=== PATIENT | female | born 1980 | race Caucasian/White ===

== ENCOUNTER 2017-06-15 18:38 | Emergency (ER) | payer BC ==
[~2017-06-15 18:38] MED LIST: ISOVUE-370 76%-LOCM 1 ML ONE
[2017-06-15 21:28] LABS: #Basophils 0.1 thou/uL (0.0-0.2); #Eosinphils 0.2 thou/uL (0.0-0.7); #Monocytes 0.7 thou/uL (0.11-0.59); #Neutrophils 6.1 thou/uL (1.40-6.50); %Eosinophils 2.4 % (0.0-10.0); %Lymphocytes 29.6 % (21.0-51.0); Hematocrit 47.9 % (36.0-47.0); Mean Platelet Volume 5.5 fL (7.4-10.4); Red Blood Cell (RBC) Count 4.76 mill/uL (4.20-5.40); White Blood Cell (WBC) Count 10.1 thou/uL (4.8-10.8)
[2017-06-15 21:49] LABS: ALT (SGPT) 29 U/L (8-55); AST (SGOT) 26 U/L (5-34); Alkaline Phosphatase 75 U/L (40-150); Anion Gap 15 mmol/L (10-20); BUN (Urea Nitrogen) 8 mg/dL (7.0-18.7); Bilirubin, Total 0.6 mg/dL (0.2-1.2); Calc. Creatinine Clearance 0 mL/min (70-130); Calcium 10.1 mg/dL (7.8-10.44); Carbon Dioxide 26 mmol/L (22-29); Chloride 104 mmol/L (98-107); Estimated GFR-MDRD 77; Globulin 3.8 g/dL (2.4-3.5); Lipase 22 U/L (8-78); Protein, Total 8.4 g/dL (6.0-8.3)
[2017-06-15] MEDS ORDERED: Ketorolac Tromethamine 30 MG/ML VIAL ONE (22:05)
[2017-06-15 22:35] LABS: Bilirubin Negative (Negative); Blood, Urine Trace (Negative); Glucose, Urine (Dipstick) Negative (Negative); Ketone, Urine 15 mg/dL (Negative); Nitrite Negative (Negative); Protein, Urine (Dipstick) Negative (Neg-Trace); Urobilinogen 0.2 mg/dL (0.2-1.0)
[2017-06-15 22:44] LABS: Bacteria/HPF 1+ HPF (None Seen); Hyaline Casts/LPF 0-3 HYALINE CAST LPF (0-3 Hyaline); RBC/HPF 0-3 HPF (0-3); WBC/HPF 0-3 HPF (0-3)
--- NOTE | 2017-06-16 00:02 | CT ---
CT ABDOMEN WITH IV CONTRAST CT PELVIS WITH IV CONTRAST: Date: 06-15-17 History: Left lower quadrant abdominal pain. History of cholecystectomy. Comparison: None. FINDINGS: Post cholecystectomy changes are noted. The liver demonstrates mild decreased attenuation relative to the spleen. While noncontrast imaging was not performed for further evaluation, this may be reflective of mild fatty infiltration. The spleen, pancreas, bilateral glands, kidneys, abdominal aorta, urinary bladder and opacified yanci l demonstrate a normal CT appearance. The appendix is visualized and normal in caliber. There is suggested thickening involving the descending colon, this is probably attributable to incom plete distention as opposed to colitis. There is no pericolonic inflammatory changes identified in t his region. There is a 2 cm hypodense cystic structure in the left ovary with mildly irregular enhancing margin s. This probably represents involuting cysts. Right adnexal structures and uterus demonstrate a norm al CT appearance for the patient's age. IMPRESSION: 1. No acute findings are seen in the abdomen or pelvis. 2. Sadler of the descending colon appear thickened. This is most likely reflective of incomplete dist ention as there is no pericolonic inflammatory changes identified to suggest colitis. However, if giovanna andreia's symptoms persist follow up imaging can be performed. 3. Probable involuting left ovarian cyst. 4. No CT evidence of appendicitis. 5. Mild fatty infiltration of the liver. 6. Cholecystectomy. POS: [facility]
== END 2017-06-16 00:12 | disposition home or self-care (01) ==
LOC: ERS 18:38
DX: N83.202 Unspecified ovarian cyst, left side (principal); E05.90 Thyrotoxicosis, unspecified without thyrotoxic crisis or storm; F32.9 Major depressive disorder, single episode, unspecified; Z79.899 Other long term (current) drug therapy
CPT/HCPCS: 74177; 80053; 81003; 81015; 81025; 83690; 85025; 96361; 96374; J1885